=== PATIENT | male | born 1940 | race Caucasian/White ===

== ENCOUNTER 2021-12-04 11:46 | Outpatient (REF) | payer OTHER, SELFPAY ==
[2021-12-04 14:46] LABS: Estimated Average Glucose 174 mg/dL; Hemoglobin A1c % 7.7 %
[2021-12-04 15:01] LABS: Syphilis Screen Nonreactive (Nonreactive)
[2021-12-04 15:07] LABS: Erythrocyte Sedimentation Rate 32 MM/HR (0-15)
[2021-12-04 15:16] LABS: Folate > 20.0 ng/mL (> or = 4.0); Vitamin B12 689 pg/mL (200-900)
[2021-12-05 13:42] LABS: Lyme Abs Screen <0.90 index
[2021-12-06 14:26] LABS: IgA 416 mg/dL (70-320); IgG 884 mg/dL (600-1540); IgM 70 mg/dL (50-300)
== END 2021-12-04 11:47 | disposition home or self-care (01) ==
LOC: HO.LAB 11:46
PROVIDERS: Visit Provider Psychiatry & Neurology Neurology
DX: G62.9 Polyneuropathy, unspecified (principal)
CPT/HCPCS: 36415; 82607; 82746; 82784; 83036; 85652; 86334; 86617; 86618; 86780

== ENCOUNTER 2022-10-02 09:18 | Day surgery (SDC) | payer OTHER, SELFPAY ==
--- NOTE | ~2022-10-02 | FL_ITS ---
EXAMINATION: XR LUMBAR PUNCTURE CLINICAL INFORMATION: Meningitis COMPARISON: None TECHNIQUE: Fluoroscopic-guided lumbar puncture. FINDINGS: Informed consent was obtained from the patient prior to the procedure. During this process, the procedure and potential alternatives were explained, along with the intended outcome and benefits. The risks of the procedure, as well as the risk of not doing the procedure, were discussed. The patient was given the opportunity to ask questions regarding the procedure and appeared competent to make medical decisions. A signed consent form which documents this discussion was placed in the medical record. Using sterile technique and fluoroscopic guidance a needle was placed from a posterior approach into the thecal sac at the L4-L5 level. Opening pressure was 19 cm of water. A total of 8.5 mL of CSF was drained. Patient tolerated procedure without difficulty. FLUOROSCOPY TIME: 0.6 minutes IMAGES: 1 DOSE: 39.523 mGy DAP: 4.994 Gy-cm2 (lin-centimeter squared) FL/FL guided lumbar puncture LP IMPRESSION: Unremarkable fluoroscopic-guided lumbar puncture as described.
[2022-10-02 09:54] LABS: MANUAL DIFF FLAG NO
[2022-10-02 09:56] LABS: Basophils Percent Auto 0.5 % (0-2); Eosinophils Absolute Auto 0.2 X10*3/uL (0.0-0.4); Eosinophils Percent Auto 3.6 % (0-4); Hematocrit 35.2 % (42.0-52.0); Hemoglobin 12.9 g/dl (14.0-18.0); Imm Gran Abs Auto 0.09 X10*3/uL (0.00-0.03); Imm Gran Pct Auto 1.5 % (0.0-0.4); Lymphocytes Absolute Auto 1.1 X10*3/uL (1.2-4.9); Lymphocytes Percent Auto 17.2 % (20-40); Mean Corpuscular HGB Conc 36.6 g/dl (31.0-36.0); Mean Corpuscular Hemoglobin 31.5 pg (27.0-33.0); Mean Corpuscular Volume 85.9 fL (80.0-98.0); Mean Platelet Volume 9.7 fL (9.4-12.4); Monocytes Absolute Auto 0.5 X10*3/uL (0.1-1.2); Monocytes Percent Auto 7.6 % (2-11); Neutrophils Absolute Auto 4.3 x10*3/uL (2.0-8.3); Neutrophils Percent Auto 69.6 % (45-73); Platelet Count 139 X10*3/uL (160-400); Red Cell Distribution Width 13.2 % (11.0-16.0); White Blood Count 6.2 X10*3/uL (4.8-10.8)
[2022-10-02 10:01] LABS: Prothrombin Time 11.9 SEC (10.0-13.1)
[2022-10-02 10:04] LABS: Partial Thromboplastin Time 29.8 SEC (26.0-36.4)
[2022-10-02 10:06] VITALS: BMI 27.8
[2022-10-02 12:35] VITALS: BP 143/68; PULSE 82; RESP 16; TEMP 36.8; O2SAT 98
[2022-10-02 12:50] VITALS: BP 143/61; PULSE 90; RESP 16; O2SAT 98
[2022-10-02 13:05] VITALS: BP 135/58; PULSE 94; RESP 16; O2SAT 98
[2022-10-02 13:12] LABS: CSF Appearance Xanthochromic; CSF Tube # 1
[2022-10-02 13:35] VITALS: BP 141/58; PULSE 91; RESP 16; O2SAT 95
[2022-10-02 13:42] LABS: Glucose CSF 126 mg/dL; Total Protein CSF 109.6 mg/dL (15-45)
[2022-10-02 13:55] LABS: Appearance CSF HAZY; Color CSF STRAW
[2022-10-02 13:56] LABS: CSF Monos 35 %; CSF Tube # 4; Lymphocytes CSF 65 %; Red Blood Cell CSF 56 MM*3; White Blood Cell CSF 4 MM*3
[2022-10-02 14:05] VITALS: BP 141/53; PULSE 101; RESP 16; O2SAT 97
== END 2022-10-02 15:00 | disposition home or self-care (01) ==
PROVIDERS: Psychiatry & Neurology Neurology; Radiology Diagnostic Radiology; PCP Family Medicine; Visit Provider Radiology Diagnostic Radiology
PROC: 009U3ZZ Drainage of Spinal Canal, Percutaneous Approach (ICD-10-PCS; CPT 62270; principal; 2022-10-02 11:00)
DX: G03.9 Meningitis, unspecified (principal); G62.9 Polyneuropathy, unspecified; R26.89 Other abnormalities of gait and mobility; Z79.82 Long term (current) use of aspirin; I10 Essential (primary) hypertension; E11.22 Type 2 diabetes mellitus with diabetic chronic kidney disease; I12.9 Hypertensive chronic kidney disease with stage 1 through stage 4 chronic kidney disease, or unspecified chronic kidney disease; N18.9 Chronic kidney disease, unspecified; F32.9 Major depressive disorder, single episode, unspecified; Z79.84 Long term (current) use of oral hypoglycemic drugs; H93.19 Tinnitus, unspecified ear
CPT/HCPCS: 36415; 62328; 82945; 84157; 85025; 85610; 85730; 87015; 87070; 87205; 89051